=== PATIENT | female | born 1960 ===

== ENCOUNTER 2021-09-30 00:41 | Emergency (ER) | payer BC ==
[~2021-09-30] VITALS: Ht 165.1 cm; Wt 74.2 kg
[2021-09-30] MEDS ORDERED: DEXAMETHASONE SOD PHOS 4 MG/ML VIAL IVP ONE (01:15)
[2021-09-30] MEDS ORDERED: IV NORMAL SALINE 1000ML BAG 1,000 ML IV ONE (01:15)
[2021-09-30 02:09] LABS: BASO # 0.1 x10^3/uL (0.0-0.2); BASO % 1 % (0-3); EOS # 0.1 x10^3/uL (0.0-0.7); EOS % 1 % (0-3); HEMATOCRIT 44.3 % (36.0-47.0); HEMOGLOBIN 15.3 g/dL (12.0-15.5); LYMPH # 1.8 x10^3/uL (1.0-4.8); LYMPH % 12 % (24-48); MEAN CORPUSCULAR HEMOGLOBIN 32 pg (25-35); MEAN CORPUSCULAR HGB CONC 35 g/dL (31-37); MEAN CORPUSCULAR VOLUME 93 fL (79-100); MONO # 1.2 x10^3/uL (0.0-1.1); MONO % 8 % (0-9); NEUT # 12.1 x10^3/uL (1.8-7.7); NEUT % 79 % (31-73); PLATELET COUNT 271 x10^3/uL (140-400); RED BLOOD COUNT 4.78 x10^6/uL (3.50-5.40); RED CELL DISTRIBUTION WIDTH 13.5 % (11.5-14.5); WHITE BLOOD COUNT 15.2 x10^3/uL (4.0-11.0)
[2021-09-30] MEDS ORDERED: IOHEXOL 300 MG/ML 100ML VIAL. IV ONE (02:15)
[2021-09-30 02:16] LABS: MONONUCLEOSIS PATIENT NEGATIVE (NEGATIVE)
[2021-09-30 02:18] LABS: CALCIUM 9.3 mg/dL (8.5-10.1); CREATININE 0.9 mg/dL (0.6-1.0); GFR 63.7; POTASSIUM 3.8 mmol/L (3.5-5.1)
[2021-09-30 02:24] LABS: ALBUMIN 4.3 g/dL (3.4-5.0); ALBUMIN/GLOBULIN RATIO 1.5 (1.0-1.7); TOTAL BILIRUBIN 0.2 mg/dL (0.2-1.0); TOTAL PROTEIN 7.2 g/dL (6.4-8.2)
[2021-09-30] MEDS ORDERED: CONTRAST GIVEN. MC PRN (02:30)
--- NOTE | 2021-09-30 03:12 | RAD ---
CLINICAL HISTORY: Reason: throat pain, change in voice, diff swallowing;OMNI 300, 70ML / Spl. Instruc tions: / History: COMPARISON: None available. TECHNIQUE: Multidetector helical CT with axial 3 mm scans and coronal and sagittal reconstructed imag es was obtained from the skull base to the aortic arch after administration of IV contrast. PQRS compliance statement - One or more of the following individualized dose reduction techniques wer e utilized for this study: 1. Automated exposure control 2. Adjustment of the mA and/or kV according to patient size 3. Use of iterative reconstruction technique FINDINGS: Images through the skull base and cavernous sinuses are unremarkable. The orbits are unremarkable. Th e paranasal sinuses and mastoid air cells are unremarkable. The nasopharynx, oral pharynx and oral cavity including the floor of the mouth and tongue are unrema rkable. There is thickening and edematous appearance of the epiglottis and aryepiglottic folds/vallecula.. Li near radiopaque density is seen in the region of the epiglottis (series 5 image 48). The vocal cords and subglottic airways are unremarkable/patent. The parotid and submandibular glands are unremarkable. The thyroid gland is unremarkable. The carotid arteries and jugular veins are patent. There is no evidence of pathologically enlarged lymph nodes. The osseous structures are unremarkable. Limited evaluation of the upper chest reveals no evidence of pulmonary parenchymal abnormality. IMPRESSION: No definite loculated fluid collection is seen to suggest abscess. However there is diffuse edema of the epiglottis, aryepiglottic folds and valleculae. These findings may be seen with epiglottitis. Sarah ear radiopaque density at the region of the right glottis may represent retained foreign body seen on sagittal image 49, can be correlated with history. Electronically signed by: Mikie Lubin MD (09/30/2021 3:10 AM) [facility]
[2021-09-30] MEDS ORDERED: CLINDAMYCIN 900MG PREMIX 50 ML IV ONE (03:45)
[2021-09-30] MEDS ORDERED: ONDANSETRON PF 4 MG/2 ML VIAL. IVP ONE (04:00)
--- NOTE | 2021-09-30 04:09 | PHYS DOC ---
Past Medical History Past Surgical History: No Surgical History Smoking Status: Unknown if ever smoked Alcohol Use: None Adult General Chief Complaint Chief Complaint: SORE THROAT HPI HPI The patient is a 61-year-old female with little medical history aside from fibromyalgia (though it does not sound as though she primary care physician). Ms. Fish presents for evaluation of 24 hours of progressively worsening throat pain and discomfort with swallowing. She reports a change in her voice as well. She states she had difficulty swallowing some hamburger that she ate for dinner and felt like there was some hamburger stuck in her throat for a time, but states she was then able to get it down. Has never had anything like this happen in the past. Patient denies associated fevers, nausea or vomiting, neck pain/stiffness/meningismus, vision changes, upper respiratory congestion/rhinorrhea, cough, shortness of breath or chest discomfort of any kind, abdominal pain of any kind. Vital signs are wholly appropriate here, including oxygenation. Patient is speaking comfortably in full sentences and normal tone of voice and tolerating secretions normally. She ambulated in with a narrow, steady gait. Review of Systems Review of Systems A 12 point review of systems was completed and was negative except where noted in HPI above. Current Medications Current Medications Current Medications Medications (Trade) Dose Ordered Sig/Lesly Start Time Stop Time Status Last Admin Dose Admin Clindamycin Phosphate 50 ml @ 100 mls/hr 1X ONCE 09/30/21 03:45 09/30/21 04:14 DC 09/30/21 03:47 100 MLS/HR Dexamethasone Sodium Phosphate (Decadron) 10 mg 1X ONCE 09/30/21 01:15 09/30/21 01:32 DC 09/30/21 01:51 10 MG Etomidate (Amidate) 20 mg STK-MED ONCE 09/30/21 04:41 09/30/21 04:41 DC Info (CONTRAST GIVEN -- Rx MONITORING) 1 each PRN DAILY PRN 09/30/21 02:30 09/30/21 05:00 DC Iohexol (Omnipaque 300 Mg/ml) 70 ml 1X ONCE 09/30/21 02:15 09/30/21 02:17 DC 09/30/21 02:44 70 ML Levofloxacin/ Dextrose 150 ml @ 100 mls/hr 1X ONCE 09/30/21 03:45 09/30/21 05:00 DC 09/30/21 04:30 100 MLS/HR Ondansetron HCl (Zofran) 4 mg 1X ONCE 09/30/21 04:00 09/30/21 04:01 DC Sodium Chloride 1,000 ml @ 1,000 mls/hr 1X ONCE 09/30/21 01:15 09/30/21 02:14 DC 09/30/21 01:51 1,000 MLS/HR Succinylcholine Chloride (Anectine) 200 mg STK-MED ONCE 09/30/21 04:40 09/30/21 04:41 DC Allergies Allergies Allergies Coded Allergies Type Severity Reaction Last Updated Verified amoxicillin Allergy Unknown Unknown 09/30/21 Yes codeine Allergy Unknown 09/30/21 Yes ibuprofen Allergy Unknown Unknown 09/30/21 Yes morphine Allergy Unknown 09/30/21 Yes sulfamethoxazole Allergy Unknown 09/30/21 Yes tetracycline Allergy Unknown 09/30/21 Yes prednisone Adverse Reaction Intermediate TACHYCARDIA 09/30/21 Yes Physical Exam Physical Exam 61-year-old female appearing nontoxic and in no acute distress. Head is normocephalic and atraumatic. Neck is supple and nontender. No neck stif fness/rigidity/meningismus seen and patient ranges neck fully in all dimensions without discomfort or distress. Oropharynx is moist. No posterior oropharyngeal erythema, tonsillar exudate or swelling or uvular deviation. Patient is tolerating secretions normally and speaking comfortably in a slightly hollow tone of voice. Lungs are clear to auscultations at all stations. There is a normal S1 and S2 without rubs or gallops and capillary refill is appropriate, less than 2 seconds globally. Abdomen is soft, nontender and nondistended. Skin is warm and dry without cyanosis, clubbing or edema. Psychiatrically, the patient demonstrates appropriate mood and affect and is alert. Current Patient Data Vital Signs Vital Signs Date Time Temp Pulse Resp B/P (MAP) Pulse Ox O2 Delivery O2 Flow Rate FiO2 09/30/21 04:30 84 20 164/78 (106) 98 Room Air 09/30/21 00:50 98.4 98.4 Lab Values Laboratory Tests Test 09/30/21 01:48 White Blood Count 15.2 x10^3/uL (4.0-11.0) H Red Blood Count 4.78 x10^6/uL (3.50-5.40) Hemoglobin 15.3 g/dL (12.0-15.5) Hematocrit 44.3 % (36.0-47.0) Mean Corpuscular Volume 93 fL (79-100) Mean Corpuscular Hemoglobin 32 pg (25-35) Mean Corpuscular Hemoglobin Concent 35 g/dL (31-37) Red Cell Distribution Width 13.5 % (11.5-14.5) Platelet Count 271 x10^3/uL (140-400) Neutrophils (%) (Auto) 79 % (31-73) H Lymphocytes (%) (Auto) 12 % (24-48) L Monocytes (%) (Auto) 8 % (0-9) Eosinophils (%) (Auto) 1 % (0-3) Basophils (%) (Auto) 1 % (0-3) Neutrophils # (Auto) 12.1 x10^3/uL (1.8-7.7) H Lymphocytes # (Auto) 1.8 x10^3/uL (1.0-4.8) Monocytes # (Auto) 1.2 x10^3/uL (0.0-1.1) H Eosinophils # (Auto) 0.1 x10^3/uL (0.0-0.7) Basophils # (Auto) 0.1 x10^3/uL (0.0-0.2) Sodium Level 138 mmol/L (136-145) Potassium Level 3.8 mmol/L (3.5-5.1) Chloride Level 103 mmol/L (98-107) Carbon Dioxide Level 25 mmol/L (21-32) Anion Gap 10 (6-14) Blood Urea Nitrogen 18 mg/dL (7-20) Creatinine 0.9 mg/dL (0.6-1.0) Estimated GFR (Cockcroft-Gault) 63.7 BUN/Creatinine Ratio 20 (6-20) Glucose Level 116 mg/dL (70-99) H Calcium Level 9.3 mg/dL (8.5-10.1) Total Bilirubin 0.2 mg/dL (0.2-1.0) Aspartate Amino Transferase (AST) 21 U/L (15-37) Alanine Aminotransferase (ALT) 26 U/L (14-59) Alkaline Phosphatase 76 U/L (46-116) Total Protein 7.2 g/dL (6.4-8.2) Albumin 4.3 g/dL (3.4-5.0) Albumin/Globulin Ratio 1.5 (1.0-1.7) Heterophil Agglutinins Negative (NEGATIVE) Laboratory Tests 09/30/21 01:48 Laboratory Tests 09/30/21 01:48 EKG EKG [] Radiology/Procedures Radiology/Procedures CLINICAL HISTORY: Reason: throat pain, change in voice, diff swallowing;OMNI 300, 70ML / Spl. Instructions: / History: COMPARISON: None available. TECHNIQUE: Multidetector helical CT with axial 3 mm scans and coronal and sagittal reconstructed images was obtained from the skull base to the aortic arch after administration of IV contrast. PQRS compliance statement - One or more of the following individualized dose reduction techniques were utilized for this study: 1. Automated exposure control 2. Adjustment of the mA and/or kV according to patient size 3. Use of iterative reconstruction technique FINDINGS: Images through the skull base and cavernous sinuses are unremarkable. The orbits are unremarkable. The paranasal sinuses and mastoid air cells are unremarkable. The nasopharynx, oral pharynx and oral cavity including the floor of the mouth and tongue are unremarkable. There is thickening and edematous appearance of the epiglottis and aryepiglottic folds/vallecula.. Linear radiopaque density is seen in the region of the epiglottis (series 5 image 48). The vocal cords and subglottic airways are unremarkable/patent. The parotid and submandibular glands are unremarkable. The thyroid gland is unremarkable. The carotid arteries and jugular veins are patent. There is no evidence of pathologically enlarged lymph nodes. The osseous structures are unremarkable. Limited evaluation of the upper chest reveals no evidence of pulmonary parenchymal abnormality. IMPRESSION: No definite loculated fluid collection is seen to suggest abscess. However there is diffuse edema of the epiglottis, aryepiglottic folds and valleculae. These findings may be seen with epiglottitis. Linear radiopaque density at the region of the right glottis may represent retained foreign body seen on sagittal image 49, can be correlated with history. Electronically signed by: Mikie Rice MD (09/30/2021 3:10 AM) [facility] DICTATED and SIGNED BY: MIKIE RICE MD DATE: 09/30/21 0257 Course & Med Decision Making Course & Med Decision Making Work-up as above, notable for leukocytosis to 15,000 with findings suspicious for acute epiglottitis on CT soft tissue neck. On serial reassessments patient is resting very comfortably, tolerating her own secretions and speaking in a more normal tone of voice. She is not working to breathe. She is breathing comfortably resting in bed. She feels much better after a dose of IV dexamethasone. Patient has a host of antibiotic allergies, including a severe allergy to penicillin. Most of the empiric broad-spectrum antimicrobial regimens directed against epiglottitis involve cephalosporins so we will use an alternate regimen of clindamycin and levofloxacin. Do not see a clear indication for intubation right now. Patient is clinically improved, tolerating her own secretions, speaking in a rather normal tone of voice and with normal respiratory effort, laying back in bed comfortably. She will certainly need close monitoring in intensive care setting to ensure that her airway can be secured immediately should she require it. Do not have the necessary ENT coverage here so we will transfer to [facility] ICU where the patient is graciously accepted in transfer by supervisor electronics inspection Dr. Townsend. Critical care time 47 minutes. Dragon Disclaimer Dragon Disclaimer This electronic medical record was generated, in whole or in part, using a voice recognition dictation system. Departure Departure Impression: Primary Impression: Acute epiglottitis Disposition: 02 SHORT TERM HOSPITAL Condition: GUARDED Referrals: NO PCP (PCP) Problem Qualifiers Primary Impression: Acute epiglottitis Airway obstruction: without obstruction Qualified Codes: J05.10 - Acute epiglottitis without obstruction ISIDRO TREVIZO MD Sep 30, 2021 04:09
[2021-09-30 04:30] VITALS: BP 164/78
[2021-09-30] MEDS ORDERED: ETOMIDATE 20 MG/10 ML VIAL. IV ONE ×2 (04:40→04:41)
[2021-09-30] MEDS ORDERED: SUCCINYLCHOLINE 200 MG/10 ML VIAL. ONE (04:40)
== END 2021-09-30 04:52 | disposition home or self-care (01) ==
LOC: ER 00:41
DX: J05.10 Acute epiglottitis without obstruction (principal); Z88.1 Allergy status to other antibiotic agents; Z88.5 Allergy status to narcotic agent; Z88.8 Allergy status to other drugs, medicaments and biological substances
CPT/HCPCS: 36415; 70491; 80053; 85025; 86308; 87070; 87880; 96361; 96365; 96368; 96375; 99285; J1100; J1956; J3490; J7030; Q9967